=== PATIENT | male | born 1950 | race Caucasian/White ===

== ENCOUNTER 2017-12-06 10:48 | Emergency (ER) | payer MEDICARE, OTHER ==
[2017-12-06] MEDS ORDERED: METHYLPREDNISOLONE PF 125MG/VIAL IM ONE (11:08)
--- NOTE | 2017-12-06 11:14 | Emergency Department Record ---
History of Present Illness - General Chief complaint: Extremity Problem Stated complaint: GOUT Time Seen by Provider: 12/06/17 10:58 Source: Patient Mode of Arrival: Ambulatory Limitations: No limitations - History of Present Illness Initial comments: The patient is here due to R foot and heel pain for 4 days. He has a hx of gout and has had similar problems in the past. Now the pain is flaring up again along with achilles tendon pain. There is no hx of trauma, injury, or any recent illness or oral Abx use. MD Complaint: Extremity pain Onset/Timin -: Days(s) Location: Right, Other History of Same: No (not in heel) Radiation: None Severity scale (1-10): 4 Quality: Sharp Consistency: Constant Improves with: Immobilization Worsens with: Exertion, Walking, Weight bearing Associated Symptoms: Denies other symptoms - Related Data Previous Rx's Medication Instructions Recorded Prednisone [Prednisone 20Mg] 20 mg PO ASDIR #15 tab 12/06/17 Allergies Allergy/AdvReac Type Severity Reaction Status Date / Time No Known Drug Allergies Allergy Unverified 09/09/17 11:19 Travel Screening - Travel/Exposure Within Last 30 Days Have you traveled within the last 30 days?: No Review of Systems Constitutional: Denies: Chills, Fever Eyes: Denies: Eye discharge ENT: Denies: Congestion Respiratory: Denies: Cough, Dyspnea Past Medical History - SOCIAL HISTORY Smoking Status: Never smoker - RESPIRATORY Hx Respiratory Disorders: Yes Hx Asthma: Yes Hx Sleep Apnea: Yes Hx of CPAP: Yes - CARDIOVASCULAR Hx Cardio Disorders: Yes Hx Hypertension: Yes - NEURO Hx Neuro Disorders: No - GI Hx GI Disorders: Yes Comment:: dysphagia - Hx Genitourinary Disorders: Yes Hx Kidney Stones: Yes - ENDOCRINE Hx Endocrine Disorders: No - MUSCULOSKELETAL Hx Musculoskeletal Disorders: Yes Hx Arthritis: Yes - PSYCH Hx Psych Problems: Yes Hx Depression: Yes - HEMATOLOGY/ONCOLOGY Hx Hematology/Oncology Disorders: Yes Hx Cancer: Yes (skin-face) Family Medical History Any Significant Family History?: No Physical Exam - General General Appearance: Alert, Oriented x3, Cooperative, No acute distress - Head Head exam: Atraumatic, Normocephalic, Normal inspection - Eye Eye exam: Normal appearance, PERRL, EOMI - Neck Neck exam: Normal inspection - Respiratory Respiratory exam: Normal lung sounds bilaterally. negative: Respiratory distress - Cardiovascular Cardiovascular Exam: Regular rate, Normal rhythm, Normal heart sounds - Extremities Extremities exam: Normal capillary refill, Tenderness (There is also tenderness to the calcaneus area and achilles tendon with no swelling, bruising, or erythema present.). negative: Normal inspection (There is mild swelling and erythema to the R 2nd toe PIP joint. ), Calf tenderness, Pedal edema - Neurological Neurological exam: Alert. negative: Motor sensory deficit Course Vital Signs 12/06/17 10:50 Temperature 97.9 F Pulse Rate 86 Respiratory 18 Rate Blood Pressure 126/80 Pulse Ox 96 - Reevaluation(s) Reevaluation #1: I did explain the need for the oral steroids at home and the plan to see his PCP next week for recheck. 12/06/17 11:25 Disposition Disposition: Discharge Clinical Impression: Tendonitis of ankle Disposition: Home, Self-Care Condition: (2) Stable Instructions: Achilles Tendinitis (ED) Additional Instructions: Please take the Prednisone as directed and use Tylenol also if needed. Please use ice to the achilles and 2nd toe when possible. Please limit your walking for 2 days and see your family doctor for recheck next week. Prescriptions: Prednisone [Prednisone 20Mg] 20 mg PO ASDIR #15 tab Forms: Patient Portal Access Time of Disposition: 11:26 Quality - Quality Measures Quality Measures: N/A - Blood Pressure Screening View Details: Yes Does Patient Have Any of the Following: No Blood Pressure Classification: Normal BP Reading Systolic Measurement: 115 Diastolic Measurement: 73 Screening for High Blood Pressure: < Normal BP, F/U Not Required > [G8783]
== END 2017-12-06 11:50 | disposition home or self-care (01) ==
LOC: ER 10:48
DX: M76.61 Achilles tendinitis, right leg (principal); I10 Essential (primary) hypertension
CPT/HCPCS: 96372; 99283; J2930

== ENCOUNTER 2019-01-08 08:51 | Day surgery (SDC) | payer MEDICARE ==
[2019-01-08] MEDS ORDERED: PROPOFOL 10 MG/ML VIAL IV ONE (08:52)
[2019-01-08] MEDS ORDERED: LIDOCAINE 2% MDV (20MG/ML) 20ML VIAL IV ONE (08:52)
--- NOTE | 2019-01-13 10:41 | Operative Note ---
SURGEON: David Alegria MD OPERATION: COLONOSCOPY. INDICATIONS: This is a 68-year-old male with history of iron deficiency anemia who presented for colonoscopy. POSTOPERATIVE DIAGNOSES: 1. Normal colon to the terminal ileum with no neoplasm or ulcerative lesions. 2. Grade 1 internal hemorrhoids. ANESTHESIA: Sedation is per Anesthesia. Pulse oximetry was monitored throughout the procedure to maintain O2 saturation of 90% or greater. Supplemental oxygen was administered via nasal cannula. Cardiac and vital signs were monitored throughout the duration of the procedure, and they were stable. The procedure of colonoscopy and risks and alternatives of the procedure, including the risk of bleeding and perforation, among others, were explained to the patient who voiced understanding and agreed to have the procedure done. Physical examination was performed, and the patient was found stable for sedation. PROCEDURE: The patient was placed in the left lateral position. Sedation was initiated. A digital rectal exam was performed and showed some mild external hemorrhoids with no palpable rectal masses. An Olympus PCF-180AL colonoscope was then inserted into the rectum under direct visualization. It was advanced to the cecum without difficulty. The ileocecal valve and appendiceal orifice were identified and photographed. The colonic mucosa was carefully examined upon introduction of the colonoscope. There were no lesions noted. The ileocecal valve was intubated and terminal ileal mucosa was inspected for about 10 cm and it appeared normal. The colonoscope was then withdrawn while carefully examining the colonic mucosal surfaces. No other lesions were noted. In the rectum, retroflexion was performed and grade 1 internal hemorrhoids were noted. The colonoscope was then withdrawn and the procedure was terminated. The patient tolerated the procedure well without any immediate complications. The patient remained with stable vital signs and was transferred to the recovery room. RECOMMENDATIONS: 1. The patient should be on a high-fiber diet. 2. The patient is to have a repeat colonoscopy for screening in 10 years. Thank you for allowing me to participate in the care of your patient. [place]
== END 2019-01-08 11:00 | disposition home or self-care (01) ==
LOC: HOP 08:51
PROVIDERS: ATTEND Internal Medicine Gastroenterology
DX: Z12.11 Encounter for screening for malignant neoplasm of colon (principal); K64.0 First degree hemorrhoids; Z86.2 Personal history of diseases of the blood and blood-forming organs and certain disorders involving the immune mechanism; I10 Essential (primary) hypertension; E78.00 Pure hypercholesterolemia, unspecified
CPT/HCPCS: 00812; G0121

== ENCOUNTER 2019-02-26 09:46 | Day surgery (SDC) | payer MEDICARE ==
[2019-02-26] MEDS ORDERED: PROPOFOL 10 MG/ML VIAL IV ONE (09:47)
[2019-02-26] MEDS ORDERED: LIDOCAINE 2% MDV (20MG/ML) 20ML VIAL IV ONE (09:47)
--- NOTE | 2019-03-01 12:30 | Operative Note ---
SURGEON: David Alegria MD OPERATION: ESOPHAGOGASTRODUODENOSCOPY. INDICATIONS: This is a 68-year-old male with history of intermittent episodes of dysphagia who presented for esophagogastroduodenoscopy. POSTOPERATIVE DIAGNOSES: 1. Normal esophagus with no specific stricture, status post biopsies and Kidd dilatation to 60-Tu[place]uan. 2. Normal stomach and duodenum. ANESTHESIA: Sedation is per Anesthesia. Pulse oximetry was monitored throughout the procedure to maintain O2 saturation of 90% or greater. Supplemental oxygen was administered via nasal cannula. Cardiac and vital signs were monitored throughout the duration of the procedure, and they were stable. The procedure of esophagogastroduodenoscopy and risks and benefits of the procedure, including the risk of bleeding and perforation, among others, were explained to the patient who voiced understanding and agreed to have the procedure done. Physical examination was performed, and the patient was found stable for sedation. PROCEDURE: The patient was placed in the left lateral position. Sedation was initiated. A plastic bite block was inserted into the oral cavity. The Olympus [id number] gastroscope was introduced into the oral cavity and advanced to the proximal esophagus without difficulty. The esophageal mucosa was carefully examined upon introduction of the gastroscope. The proximal and mid and distal esophageal mucosa appeared normal. The gastroscope was then advanced into the stomach, and surveillance of the stomach revealed normal gastric fundus, body, and antrum but no ulcers were noted. The gastroscope was then advanced to the descending duodenum without difficulty. The duodenal bulb and descending duodenal mucosa appeared normal. The gastroscope was then withdrawn into the stomach and retroflexion was performed. There were no other lesions noted. The gastroscope was then withdrawn while carefully examining the gastric and esophageal mucosa. No other lesions noted. Multiple mid esophageal biopsies were obtained. The patient remained with stable vital signs, and a Kidd dilator size 60-Tu[place] was then passed into the stomach with minimal resistance. Kidd dilator was then withdrawn and the procedures were terminated. The patient tolerated procedure well without any immediate complications. He remained with stale vital signs and was transferred to the recovery room. RECOMMENDATIONS: 1. The patient should continue on his proton pump inhibitors. 2. I will see him back in the office as needed. Thank you for allowing me to participate in the care of your patient. A[place]
== END 2019-02-26 11:55 | disposition home or self-care (01) ==
LOC: HOP 09:46
PROVIDERS: ATTEND Internal Medicine Gastroenterology
DX: R13.10 Dysphagia, unspecified (principal); K20.0 Eosinophilic esophagitis; I10 Essential (primary) hypertension; E78.00 Pure hypercholesterolemia, unspecified; M10.9 Gout, unspecified